=== PATIENT | male | born 1985 | race Caucasian/White ===

== ENCOUNTER 2018-11-19 21:02 | Emergency (ER) | payer BC ==
[2018-11-19 21:08] VITALS: BP 130/83
[2018-11-19] MEDS ORDERED: CLINDAMYCIN 150 MG CAPSULE PO STA (21:38)
[2018-11-19] MEDS ORDERED: oxyCODONE/ACET 5/325 Prepack 4 PO STA (21:38)
--- NOTE | 2018-11-19 21:41 | ED Physician Documentation ---
PD HPI HEENT - Stated complaint Stated Complaint: TOOTH ACHE - Chief complaint Chief Complaint: Heent - History obtained from History obtained from: Patient - History of Present Illness Timing - onset: Other (He has had a chipped tooth on the left maxillary area for quite some time that is been bothering him he actually has an appoint with a dentist tomorrow but over the last few days the pain has become intolerable and radiating to the ear.) Review of Systems Constitutional: denies: Fever, Chills Ears: reports: Ear pain Nose: denies: Rhinorrhea / runny nose Throat: reports: Dental pain / toothache. denies: Sore throat PD PAST MEDICAL HISTORY - Past Medical History Past Medical History: No - Past Surgical History Past Surgical History: No - Present Medications Home Medications: Ambulatory Orders Medication Instructions Recorded Confirmed Clindamycin HCl [Clindamycin 300MG 300 mg PO Q6H #28 capsule 11/19/18 CAP] Oxycodone HCl/Acetaminophen 1 - 2 each PO Q6H PRN #14 tablet 11/19/18 [Percocet 5-325 mg Tablet] - Allergies Allergies/Adverse Reactions: Allergies Allergy/AdvReac Type Severity Reaction Status Date / Time No Known Drug Allergies Allergy Verified 11/19/18 21:07 - Social History Does the pt smoke?: No Smoking Status: Never smoker Does the pt drink ETOH?: Yes Does the pt have substance abuse?: Yes Substance Use and Type: Marijuana - Immunizations Immunizations are current?: Yes PD ED PE NORMAL - Vitals Vital signs reviewed: Yes - General General: Alert and oriented X 3, No acute distress - HEENT HEENT: Other (Second the last left maxillary molar is tender with a moderate size cavity. There is no gingival swelling or trismus but he has very very mild facial swelling overlying it.) - Neck Neck: Supple, no meningeal sign, No bony TTP, No adenopathy - Neuro Neuro: Alert and oriented X 3, Normal speech Results - Vitals Vitals: Vital Signs - 24 hr 11/19/18 21:04 Temperature 37 C Heart Rate 77 Respiratory 18 Rate Blood Pressure 130/83 H O2 Saturation 98 Oxygen O2 Source Room air Departure - Departure Disposition: 01 Home, Self Care Clinical Impression: Pain due to dental caries Condition: Good Record reviewed to determine appropriate education?: Yes Instructions: ED Tooth Pain Prescriptions: Clindamycin HCl [Clindamycin 300MG CAP] 300 mg PO Q6H #28 capsule Oxycodone HCl/Acetaminophen [Percocet 5-325 mg Tablet] 1 - 2 each PO Q6H PRN #14 tablet PRN Reason: pain Comments: Follow-up with the dentist tomorrow as scheduled. Do not drink or drive while taking narcotic pain medication. Note that many narcotic pain relievers also contain Tylenol/acetaminophen. Please ensure that your total dose of acetaminophen from all sources does not exceed 3 g (3000 mg) per day. You may get constipated while on this medication. Take a stool softener such as Colace twice a day while you are on it. Also add an hosq-jkp-kaakbll laxative such as senna or MiraLAX on any day that you do not have a bowel movement. If you received a narcotic pain medication or sedative while in the emergency department, do not drive for the next 24 hours.
== END 2018-11-19 21:51 | disposition home or self-care (01) ==
LOC: ED 21:02
DX: K02.9 Dental caries, unspecified (principal); H92.02 Otalgia, left ear
CPT/HCPCS: 99283; A9270

== ENCOUNTER 2019-08-09 09:14 | Emergency (ER) | payer MEDICAID, OTHER ==
[2019-08-09 09:25] VITALS: BP 150/100
--- NOTE | 2019-08-09 09:31 | ED Physician Documentation ---
PD HPI HEENT - Stated complaint Stated Complaint: TOOTH PX - Chief complaint Chief Complaint: Heent - History obtained from History obtained from: Patient - History of Present Illness Timing - onset: How many days ago (5) Timing - duration: Days (5) Timing - details: Gradual onset, Still present Location: Tooth Improves: Medication Worsens: Swalllowing, Temperatures Associated symptoms: Facial swelling, Headache. No: Fever, Congestion, Rhinorrhea, Trismus, Unable to swallow, Swollen nodes, Cough Similar symptoms before: Diagnosis (bad tooth) Recently seen: Other - Additional information Additional information: 33-year-old male previously well has developed a toothache in the left upper molar. He has been into see his dentist yesterday and was placed on some amoxicillin and given some ibuprofen. He states the ibuprofen is inadequate for pain control he is here now for pain control. He states that he has a hole in the more immediately in front of his last molar and that he thought that was a tooth that was bothering him but when they were tested looks like the rear molar is one that is causing the most pain. He denies specifically pain to the molar with a hole in it with heat and cold. Review of Systems Constitutional: reports: Chills. denies: Fever Eyes: denies: Decreased vision Ears: denies: Ear pain Nose: reports: Congestion. denies: Rhinorrhea / runny nose Throat: reports: Dental pain / toothache Respiratory: denies: Dyspnea, Cough GI: denies: Vomiting PD PAST MEDICAL HISTORY - Past Medical History Past Medical History: No - Past Surgical History Past Surgical History: No - Present Medications Home Medications: Ambulatory Orders Medication Instructions Recorded Confirmed Amoxicillin 500 mg PO TID 08/09/19 08/09/19 Oxycodone HCl/Acetaminophen 1 - 2 each PO Q6H PRN #14 tablet 08/09/19 [Percocet 5-325 mg Tablet] - Allergies Allergies/Adverse Reactions: Allergies Allergy/AdvReac Type Severity Reaction Status Date / Time No Known Drug Allergies Allergy Verified 08/09/19 09:22 - Social History Does the pt smoke?: No Smoking Status: Never smoker Does the pt drink ETOH?: Yes Does the pt have substance abuse?: Yes - Immunizations Immunizations are current?: Yes PD ED PE NORMAL - Vitals Vital signs reviewed: Yes (hypertensive ) - General General: Alert and oriented X 3, Well developed/nourished, Other (33-year-old male appears to be in 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 The rear molar is most tender and appears normal externally. The second to the last molar has a hole in it and it is less tender than the last molar. There is no swelling to the gingival margin or the buccal crease.) - Neck Neck: Supple, no meningeal sign, No bony TTP - Respiratory Respiratory: No respiratory distress - Derm Derm: Normal color, Warm and dry, No rash - Extremities Extremities: No deformity, No edema, No calf tenderness / cord - Neuro Neuro: paradi tender 2-12 intact, No motor deficit, No sensory deficit, Normal speech Eye Opening: Spontaneous Motor: Obeys Commands Verbal: Oriented GCS Score: 15 - Psych Psych: Normal mood Results - Vitals Vitals: Vital Signs - 24 hr 08/09/19 09:18 Temperature 37.2 C Heart Rate 80 Respiratory 18 Rate Blood Pressure 150/100 H O2 Saturation 99 Oxygen O2 Source Room air PD MEDICAL DECISION MAKING - ED course Complexity details: considered differential, d/w patient ED course: Otherwise well 33-year-old male with a bad tooth. He is on some amoxicillin he needs something more for pain. I suspect the nerve to the tooth with a hole in it is deadened and placement of temporary filling material is not performed.He does have an appointment to see his dentist in follow up in 5 days time. Departure - Departure Disposition: 01 Home, Self Care Clinical Impression: Pain due to dental caries Instructions: ED Tooth Pain Follow-Up: [facility] [Provider Group] Prescriptions: Oxycodone HCl/Acetaminophen [Percocet 5-325 mg Tablet] 1 - 2 each PO Q6H PRN #14 tablet PRN Reason: pain
== END 2019-08-09 09:45 | disposition home or self-care (01) ==
LOC: ED 09:14
DX: K02.9 Dental caries, unspecified (principal)
CPT/HCPCS: 99282; 99284

== ENCOUNTER 2020-06-17 07:05 | Emergency (ER) | payer MEDICAID ==
[2020-06-17] MEDS ORDERED: MELOXICAM 7.5 MG TABLET PO STA (07:40)
[2020-06-17] MEDS ORDERED: methocarbamoL 500 MG TABLET PO STA (07:40)
--- NOTE | 2020-06-17 07:45 | ED Physician Documentation ---
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 Worse with movement and better with rest. No fevers. no chills, no numbness or tingling, no IVDA, no incontinence. No trauma. Review of Systems Constitutional: denies: Fever, Chills Nose: denies: Rhinorrhea / runny nose, Congestion Cardiac: denies: Chest pain / pressure Respiratory: denies: Cough GI: denies: Abdominal Pain, Nausea, Vomiting, Diarrhea Skin: denies: Rash Musculoskeletal: denies: Extremity pain Neurologic: denies: Focal weakness, Numbness, Headache PD PAST MEDICAL HISTORY - Past Medical History Past Medical History: No - Past Surgical History Past Surgical History: No - Present Medications Home Medications: Ambulatory Orders Medication Instructions Recorded Confirmed Meloxicam [Mobic] 7.5 mg PO BID PRN #20 tablet 06/17/20 methocarbamoL [Robaxin] 500 mg PO Q6H PRN #20 tablet 06/17/20 - Allergies Allergies/Adverse Reactions: Allergies Allergy/AdvReac Type Severity Reaction Status Date / Time No Known Drug Allergies Allergy Verified 06/17/20 07:19 - Social History Does the pt smoke?: No Smoking Status: Never smoker Does the pt drink ETOH?: Yes Does the pt have substance abuse?: Yes - Immunizations Immunizations are current?: Yes PD ED PE NORMAL - Vitals Vital signs reviewed: Yes - General General: Alert and oriented X 3, No acute distress - HEENT HEENT: Moist mucous membranes - Neck Neck: No bony TTP - Cardiac Cardiac: RRR - Respiratory Respiratory: No respiratory distress, Clear bilaterally - Back Back: Other (No midline tenderness to palpation or percussion over the cervical, thoracic or lumbar spines. There is paraspinal spasm, right greater than left lower cervical and upper thoracic. This reproduces his pain with palpation. Neurovascularly intact) - Derm Derm: Warm and dry - Neuro Neuro: Alert and oriented X 3, No motor deficit, No sensory deficit, Normal speech Results - Vitals Vitals: Vital Signs - 24 hr 06/17/20 07:17 Temperature 36.6 C Heart Rate 72 Respiratory 16 Rate Blood Pressure 154/90 H O2 Saturation 99 Oxygen O2 Source Room air PD MEDICAL DECISION MAKING - ED course Complexity details: considered differential (No cauda equina, no spinal epidural abscess, no fracture, no aortic dissection or evidence of aneursym rupture), d/w patient ED course: Patient appears to have muscle spasm, likely secondary to lifting and shoveling. No neurological deficits. No radiculopathy. We will trial on anti- inflammatories and muscle relaxants. We will have him follow-up with his doctor for further care. Patient counseled regarding signs and symptoms for which I believe and urgent re-evaluation would be necessary. Patient with good understanding of and agreement to plan and is comfortable going home at this time This document was made in part using voice recognition software. While efforts are made to proofread this document, sound alike and grammatical errors may occur. Departure - Departure Disposition: 01 Home, Self Care Clinical Impression: Back muscle spasm Condition: Good Instructions: ED Back Care Tips, ED Neck Back Pain General Follow-Up: your,doctor in 1 week [Other] Prescriptions: Meloxicam [Mobic] 7.5 mg PO BID PRN #20 tablet PRN Reason: Pain methocarbamoL [Robaxin] 500 mg PO Q6H PRN #20 tablet PRN Reason: muscle spasm Comments: Return if you worsen. Follow-up with your doctor for further care. Continue to gently stretch your neck. Do not drive or operate heavy machinery while taking the Robaxin. Forms: Activity restrictions
[2020-06-17 08:02] VITALS: BP 139/78
== END 2020-06-17 07:54 | disposition home or self-care (01) ==
LOC: ED 07:05
DX: M62.830 Muscle spasm of back (principal)
CPT/HCPCS: 99282; 99284; A9270

== ENCOUNTER 2022-08-18 15:01 | Emergency (ER) | payer MEDICAID ==
[2022-08-18 15:17] VITALS: BP 129/97
--- NOTE | 2022-08-18 15:37 | ED Physician Documentation ---
History of Present Illness - Stated complaint Stated Complaint: LOWER BACK PX - Chief complaint Chief Complaint: Back Pain - Additonal information Additional information: 36-year-old male presents emergency department for evaluation of right low back pain that began about 1 week ago. 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 He stopped working that day and rested the next but when he returned to work the following day he began to have increasing pain. He has been alternating ice and Tylenol with some relief of pain. He is also tried a few doses of ibuprofen or Tylenol that his has given him. He does not think that it is helped much though despite minimal treatment he says that overall the pain is getting better. He simply is here to know what the cause of the pain could be. He does not want any prescriptions. He has no saddle anesthesia, loss of bowel or bladder function. He has no urinary symptoms. No radiation of pain into the lower leg or into the scrotum/testicles. No history of similar in the past. He is not a diabetic. Takes no routinely prescribed medications. Patient is a good historian Review of Systems Constitutional: reports: Reviewed and negative Cardiac: reports: Reviewed and negative Respiratory: reports: Reviewed and negative GI: reports: Reviewed and negative PD PAST MEDICAL HISTORY - Past Surgical History Past Surgical History: No - Present Medications Home Medications: Ambulatory Orders Medication Instructions Recorded Confirmed No Known Home Medications 08/18/22 08/18/22 - Allergies Allergies/Adverse Reactions: Allergies Allergy/AdvReac Type Severity Reaction Status Date / Time No Known Drug Allergies Allergy Verified 08/18/22 15:17 - Social History Does the pt smoke?: No Smoking Status: Never smoker Does the pt drink ETOH?: Yes Does the pt have substance abuse?: Yes - Immunizations Immunizations are current?: Yes PD ED PE NORMAL - General General: Alert and oriented X 3, No acute distress - Cardiac Cardiac: RRR, No murmur - Respiratory Respiratory: Clear bilaterally - Abdomen Abdomen: Normal bowel sounds, Soft - Back Back: No CVA TTP, No spinal TTP, Other (No tenderness with palpation of the lower midline lumbar spine. Normal forward range of motion. Normal gait. Motor strength 5 of 5. 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 Despite minimal treatment it has started to get better on his own. Patient is here simply to make sure its not anything more than a low back strain. He has had no fevers or saddle anesthesia. No falls or trauma. Very low suspicion for spinal epidural abscess. Clinically the patient has negative straight leg exam bilaterally and without radiation I doubt sciatica. I did offer the patient a one-time dose of Decadron which she declined. He feels comfortable trying to manage with gentle stretching, Tylenol and ibuprofen at home which is reasonable given an otherwise benign exam. He is discharged home in stable condition. Emergent return precautions discussed Departure - Departure Disposition: 01 Home, Self Care Clinical Impression: Right low back pain Qualifiers: Chronicity: acute Sciatica presence: without sciatica Qualified Code(s): M54.50 - Low back pain, unspecified Condition: Stable Record reviewed to determine appropriate education?: Yes Instructions: ED Sprain Strain Lumbar Comments: Sunil you are seen today in the emergency department for pain in your right low back. This has been ongoing for about a week after lifting a heavy plant. As we discussed at the bedside I suspect that you have a lumbar strain or muscle pull. I recommend they take 600 mg of ibuprofen with food 2-3 times a day or alternate with 500 mg of Tylenol also 2-3 times a day. You can continue to use heat or ice whichever feels better. Most cases of low back strain will get better after 1 to 2 weeks. Return to the ER if you find your symptoms or not improving, you lose sensation in your genital area, lose coordination of your bowel or bladder function or have any other worsening symptoms
== END 2022-08-18 15:41 | disposition home or self-care (01) ==
LOC: ED 15:01
DX: M54.50 Low back pain, unspecified (principal)
CPT/HCPCS: 99281; 99283

== ENCOUNTER 2023-12-10 14:20 | Emergency (ER) | payer MEDICAID ==
[2023-12-10 14:35] VITALS: O2SAT 98
--- NOTE | 2023-12-10 17:27 | ED Physician Documentation ---
PD HPI HEENT - Stated complaint Stated Complaint: RT MOUTH PX - Chief complaint Chief Complaint: Heent - History obtained from History obtained from: Patient - History of Present Illness Timing - onset: How many days ago (few) Timing - duration: Days (few) Timing - details: Gradual onset, Still present Location: Tooth (right upper incisor) Associated symptoms: Facial swelling, Other (gum swelling). No: Fever, Congestion Similar symptoms before: Diagnosis (dental infections in the past. He has a dentist and can call them next week.) Review of Systems Constitutional: denies: Fever, Chills Cardiac: denies: Chest pain / pressure Respiratory: denies: Dyspnea PD PAST MEDICAL HISTORY - Past Medical History Past Medical History: No - Past Surgical History Past Surgical History: No - Present Medications Home Medications: Ambulatory Orders Medication Instructions Recorded Confirmed HYDROcod/ACETAM 5/325 [[place] 5/325] 1 ea PO Q6H PRN #10 tablet 12/10/23 Ondansetron Odt [Zofran] 4 mg TL Q6H PRN #10 tablet 12/10/23 clindamycin HCL [Clindamycin HCl] 300 mg PO TID 7 Days #20 cap 12/10/23 - Allergies Allergies/Adverse Reactions: Allergies Allergy/AdvReac Type Severity Reaction Status Date / Time No Known Drug Allergies Allergy Verified 12/10/23 14:30 - Social History Does the pt smoke?: No Smoking Status: Never smoker Does the pt drink ETOH?: Yes Does the pt have substance abuse?: Yes - Immunizations Immunizations are current?: Yes - POLST Patient has POLST: No PD ED PE NORMAL - Vitals Vital signs reviewed: Yes - General General: Alert and oriented X 3, No acute distress, Well developed/nourished - HEENT HEENT: No: Dentition benign (cavities and decay noted. Has gum line swelling right upper incisor with local swelling but no large abscess) Results - Vitals Vitals: Oxygen O2 Source Room air PD Medical Decision Making - ED course Complexity details: considered differential (dental abscess at gumline that is not too big (1/2 cm) and I feel will improve with abx without I&D. some facial swelling without extended abscess.), d/w patient Departure - Departure Disposition: 01 Home, Self Care Clinical Impression: Dental abscess Condition: Stable Record reviewed to determine appropriate education?: Yes Instructions: ED Abscess Dental Prescriptions: clindamycin HCL [Clindamycin HCl] 300 mg PO TID 7 Days #20 cap HYDROcod/ACETAM 5/325 [[place] 5/325] 1 ea PO Q6H PRN #10 tablet PRN Reason: Pain Ondansetron Odt [Zofran] 4 mg TL Q6H PRN #10 tablet PRN Reason: Nausea / Vomiting Comments: Clindamycin antibiotic 3 times daily for the next week. Use anti-inflammatory such as ibuprofen 3 times daily with food. Add acetaminophen every 4-6 hours if needed for worse pain. To that add hydrocodone every 4-6 hours if needed for worse pain. I would anticipate needing this just for short time. Recheck if not improving well over the next several days. Follow-up with dental clinic at their earliest time available. Call for an appointment. I sent new prescriptions to preferred pharmacy. My narcotic instructions I am prescribing a short course of narcotic pain medication for you. These are potentially dangerous and addictive medications that should be used carefully. These medications may constipate you. Take an vjpz-[id number]-[id number] stool softener such as docusate twice daily with plenty of water while taking these medications. If you go 24 hours without a bowel movement, take [id number] MiraLAX, per package instructions. Do not drink or drive while taking these medications. If you received narcotic or sedating medications while in the emergency department do not drive for 24 hours. Store this medication in a safe, secure place and out of reach of children. It is a violation of federal law to give or sell this medication to another person or to use in a manner other than prescribed. The ED will not refill narcotic prescriptions, including prescriptions lost or stolen. You can dispose of unwanted medications at the [facility]'s office or at several pharmacies such as [facility]. Forms: PCP List Discharge Date/Time: 12/10/23 18:30
[2023-12-10] MEDS: IBUPROFEN 600 MG TABLET PO STA (17:59)
[2023-12-10] MEDS: CLINDAMYCIN 150 MG CAPSULE PO STA (17:59)
[2023-12-10] MEDS: HYDROcod/ACET 5/325 Prepack 4 PO STA (18:00)
[2023-12-10 18:39] VITALS: BP 138/88
== END 2023-12-10 18:30 | disposition home or self-care (01) ==
LOC: ED 14:20
DX: K04.7 Periapical abscess without sinus (principal)
CPT/HCPCS: 99283; A9270